=== PATIENT | female | born 1995 | race American Indian/Alaskan Native ===

== ENCOUNTER 2021-09-05 15:42 | Emergency (ER) | payer MEDICAID ==
[2021-09-05 16:40] VITALS: BP 144/78
--- NOTE | 2021-09-05 19:01 | Emergency Department Report ---
ED Female HPI - General Chief complaint: Medical Clearance Stated complaint: HAVEN'T HAD PERIOD Time Seen by Provider: 09/05/21 18:54 Source: patient Mode of arrival: Ambulatory Limitations: No Limitations - History of Present Illness Initial comments: 26-year-old female presents to the ER today with concern for being . Patient states that her last menstrual cycle was July. She has not had a menstrual cycle yet from August. She noticed that in the past few days she has been having soreness to her nipples. She is currently not on any control. She states that she has taken a couple home test and they have been negative. She reports no abdominal pain or vaginal bleeding. She is AB 1. Complaint: other (missed menstrual cycle ) -: days(s) - Related Data Allergies Allergy/AdvReac Type Severity Reaction Status Date / Time shellfish derived Allergy Unknown Verified 09/05/21 16:35 ED Review of Systems ROS: Stated complaint: HAVEN'T HAD PERIOD Other details as noted in HPI Comment: All other systems reviewed and negative Constitutional: denies: chills, fever Eyes: denies: eye pain, eye discharge, vision change ENT: denies: ear pain, throat pain Respiratory: denies: cough, shortness of breath, wheezing Cardiovascular: denies: chest pain, palpitations Endocrine: no symptoms reported Gastrointestinal: denies: abdominal pain, nausea, diarrhea, constipation, keli temesis, melena, hematochezia Genitourinary: denies: urgency, dysuria, frequency, hematuria, discharge, abnormal menses, dyspareunia Skin: denies: rash, lesions, change in color, change in hair/nails, pruritus Neurological: denies: headache, weakness, paresthesias, abnormal gait, vertigo Psychiatric: denies: anxiety, depression, auditory hallucinations, visual hallucinations, homicidal thoughts, suicidal thoughts Hematological/Lymphatic: denies: easy bleeding, easy bruising, swollen glands ED Physical Exam - General Limitations: No Limitations General appearance: alert, in no apparent distress - Head Head exam: Present: atraumatic, normocephalic, normal inspection - Eye Eye exam: Present: normal appearance, PERRL, EOMI Pupils: Present: normal accommodation - Respiratory Respiratory exam: Present: normal lung sounds bilaterally. Absent: respiratory distress, wheezes, rales, rhonchi - Cardiovascular Cardiovascular Exam: Present: regular rate, normal rhythm, normal heart sounds - GI/Abdominal GI/Abdominal exam: Present: soft. Absent: distended, tenderness, guarding, rebound - Neurological Exam Neurological exam: Present: alert, oriented X3, CN II-XII intact, normal gait - Psychiatric Psychiatric exam: Present: normal affect, normal mood - Skin Skin exam: Present: intact ED Course Vital Signs 09/05/21 16:39 Temperature 97.8 F Pulse Rate 75 Respiratory 18 Rate Blood Pressure 144/78 [Right] O2 Sat by Pulse 99 Oximetry Critical care attestation.: If time is entered above; I have spent that time in minutes in the direct care of this critically ill patient, excluding procedure time. ED Disposition Clinical Impression: Positive test Disposition: 01 HOME / SELF CARE / HOMELESS Is pt being admited?: No Does the pt Need Aspirin: No Condition: Stable Instructions: Care Additional Instructions: Recommend that you start taking vitamins from [id number]. I recommend that you follow-up with your [facility] to schedule care. Return to the ER if you develop any concerning symptoms. Referrals: [facility] [Provider Group] - 3-5 Days [facility] [Provider Group] - 3-5 Days Time of Disposition: 19:37
[2021-09-05 19:33] LABS: HCG Qualitative,Urine Positive (Negative)
== END 2021-09-05 21:34 | disposition home or self-care (01) ==
LOC: ED 15:42
DX: Z32.01 Encounter for pregnancy test, result positive (principal)
CPT/HCPCS: 81025; 99282